=== PATIENT | male | born 1970 | race Caucasian/White ===

== ENCOUNTER 2017-12-16 06:19 | Day surgery (SDC) | payer OTHER ==
[2017-12-12 10:47] VITALS: BMI 42.5
[2017-12-16] MEDS ORDERED: methylPREDNISolone ACET (DEPO) 40 MG/1 ML VIAL ONE (07:07)
[2017-12-16] MEDS ORDERED: LIDOCAINE 1%/EPI 1:100000 (20 ML MULTI DOSE VIAL) ONE (07:07)
[2017-12-16] MEDS ORDERED: THROMBIN (BOVINE) 5,000 UNIT VIAL TP ONE ×2 (07:07→10:42)
[2017-12-16] MEDS ORDERED: oxyCODONE HCL 10 MG SUSTAINED ACTING TABLET PO STA (07:10)
--- NOTE | 2017-12-16 07:29 | HP ---
History & Physical Update - History History: No Change - Physical Physical: No Change - Assessment Assessment: No Change - Plan Plan: No Change (Initial H&P completed on 12/12/17. No new complaints or medications)
[2017-12-16] MEDS ORDERED: MIDAZOLAM HCL 2 MG/2 ML SINGLE DOSE VIAL ONE (07:59)
[2017-12-16] MEDS ORDERED: DEXAMETHASONE SOD PHOSPHATE/PF 10 MG/ML SDV ONE (07:59)
[2017-12-16] MEDS ORDERED: BUPIVACAINE HCL/PF (5 MG/ML) 30 ML VIAL IJ ONE (07:59)
[2017-12-16] MEDS ORDERED: LIDOCAINE 1%/EPI 1:100000 (50 ML MULTI DOSE VIAL) INF ONE (09:45)
[2017-12-16] MEDS ORDERED: GELATIN SPONGE,ABSORBABLE 1 GM PACKET TP ONE (10:42)
--- NOTE | 2017-12-16 11:03 | OP ---
Operative Note - Note: Operative Date: 12/16/17 Pre-Operative Diagnosis: L4/5 stenosis with radiculopathy Operation: L4/5 bilateral laminectomy Post-Operative Diagnosis: Same as Pre-op Surgeon: Jonathan Vital Waste Salvager: Alex Velasquez Anesthesiologist/STAFFING EXECUTIVE: Arlyn Dimas Anesthesia: Spinal Estimated Blood Loss (mls): 20 Fluid Volume Replaced (mls): 1,000 Operative Report Dictated: Yes
--- NOTE | 2017-12-16 11:04 | SURG ---
Surgery Repairer Wood Furniture Note Repairer Wood Furniture: Alex Velasquez PA-C Date of Service: 12/16/17 Diagnosis: L4/5 stenosis with radiculopathy Procedure: L4/5 bilateral laminectomy I was present for the entirety of the operative procedure. For further detail, please refer to operative report. Visit type - Case Type Case Type: Scheduled - New patient This patient is new to me today: Yes Date on this admission: 12/16/17
[2017-12-16 13:35] VITALS: BP 152/90; PULSE 79; TEMP 98.5
[2017-12-16] MEDS ORDERED: ONDANSETRON 4 MG/2 ML VIAL IVPUSH PRN (14:17)
[2017-12-16] MEDS ORDERED: oxyCODONE HCL 5 MG TABLET PO PRN ×2 (14:17)
[2017-12-16] MEDS ORDERED: PROMETHAZINE HCL 25 MG/1 ML VIAL IVPB PRN (14:17)
[2017-12-16] MEDS ORDERED: LACTATED RINGERS SOLUTION 1,000 ML IV SCH (14:30)
--- NOTE | 2017-12-16 19:01 | OP ---
DATE OF OPERATION: 12/16/2017 PREOPERATIVE DIAGNOSIS: Spinal stenosis at L5-S1. POSTOPERATIVE DIAGNOSIS: Spinal stenosis at L5-S1. PROCEDURE PERFORMED: Laminectomy, L5-S1. SURGEON: Jonathan Vital MD GRANT COORDINATOR: CARMEL Cavanaugh ESTIMATED BLOOD LOSS: 50 mL INTRAVENOUS FLUIDS: Per Anesthesia. ANESTHESIA: Spinal/TLIP. COMPLICATIONS: None. DISPOSITION: Patient was brought to the PACU in stable condition. INDICATION FOR SURGERY: The patient is a 47-year-old gentleman who has been suffering from pain from his back down his leg. X-rays and MRI were completed which noted that he had spinal stenosis at L5-S1. He had gone through an exhaustive course of treatment for this, which included medications, physical therapy as well as injections. Unfortunately, his pain continued to persist despite all this. At this point, risks, benefits, and alternatives were discussed, and the patient consented to surgery. DESCRIPTION OF PROCEDURE: Patient was brought to the operating room by the anesthesia staff. After appropriate patient identification was performed, spinal anesthesia was given. A TLIP block was also given. Patient was placed prone onto the OR table. He was able to position himself to avoid all bony prominences. Two needles were placed into his back to brayan off the L5-S1 segment. X-ray was taken to confirm this as correct. Hodges were removed, and 10 mL of lidocaine with epinephrine were injected in his back at this time. His back was prepped and draped in a sterile manner. At this point, a timeout was completed. An incision was made from the top of L5 down to the bottom of S1. Dissection was carried down to the fascia. Fascia was split open at this time, and appropriate retractors were then placed in. A spinal needle was placed onto the L5 lamina to brayan off the L5-S1 level. An x-ray was taken to confirm this as correct. The needle was removed, and the interspinous ligament at L5-S1 was removed. A microscope was brought in. Using a series of pituitaries, Kerrisons, and curettes, a diskectomy was completed. By the end of the procedure, the S1 nerve root appeared to be well decompressed. All bleeding was well controlled at this time. Steroid was placed over the nerve root. FloSeal was placed over that. The fascia was closed with a No. 1 Vicryl suture. Subcutaneous tissues were closed with 2-0 Vicryl suture. Skin was closed with 3-0 Monocryl suture. Dermabond was applied. Steri-Strips were applied. A sterile dressing was applied. Patient was placed supine on the OR bed and brought to the PACU in stable condition. Yannick FLORENCE/[id number]
== END 2017-12-16 13:40 | disposition home or self-care (01) ==
LOC: FASU 06:19
PROVIDERS: ATTEND Orthopaedic Surgery Orthopaedic Surgery of the Spine
PROC: 01NB0ZZ Release Lumbar Nerve, Open Approach (ICD-10-PCS; principal; 2017-12-16 08:15)
DX: M48.07 Spinal stenosis, lumbosacral region (principal)
CPT/HCPCS: 72100-TC-FY; 94760